=== PATIENT | female | born 1955 | race Caucasian/White ===

== ENCOUNTER 2016-10-06 11:16 | Emergency (ER) | payer MEDICAID ==
[~2016-10-06] VITALS: Ht 160 cm; Wt 65.8 kg
[2016-10-06 11:25] VITALS: BP 168/82; PULSE 75; RESP 16; TEMP 98; O2SAT 99
[2016-10-06] MEDS ORDERED: OXYMETAZOLINE HCL 0.05% NASAL SPRAY NS ONE (13:30)
[2016-10-06] MEDS ORDERED: LORazepam 1 MG TABLET PO ONE (13:45)
[2016-10-06 14:15] LABS: BASOPHILS % (AUTO) 0.3 % (0.0-2.0); EOSINOPHILS # (AUTO) 0.1 K/uL (0.0-0.4); EOSINOPHILS % (AUTO) 0.8 % (0.0-4.0); HEMATOCRIT 40.4 % (36-48); HEMOGLOBIN 13.7 g/dL (12.0-16.0); MEAN CORPUSCULAR HEMOGLOBIN 29 pg (27-31); MEAN CORPUSCULAR HGB CONC 34 % (32-36); MEAN CORPUSCULAR VOLUME 84 fL (79.0-98.0); MONOCYTES # (AUTO) 0.2 K/uL (0.0-1.0); MONOCYTES % (AUTO) 1.8 % (1.7-9.3); NEUTROPHILS # (AUTO) 10.8 K/uL (1.8-7.7); NEUTROPHILS % (AUTO) 89.1 % (40.0-70.0); PLATELET COUNT (AUTO) 230 K/uL (130-430); RED CELL DISTRIBUTION WIDTH 11.9 % (9.0-15.0); WHITE BLOOD COUNT (AUTO) 12.1 K/uL (4.8-10.8)
[2016-10-06] MEDS ORDERED: cloNIDine HCL 0.1 MG TABLET PO ONE (14:15)
[2016-10-06 14:30] LABS: CALCIUM 9.7 mg/dL (8.4-11.0); CREATININE 0.55 mg/dL (0.55-1.30); POTASSIUM 4.1 mmol/L (3.5-5.1)
[2016-10-06 14:31] LABS: INR 0.9 (0.8-1.2); PROTHROMBIN TIME 10.3 SECS (9.5-12.5)
[2016-10-06 16:23] VITALS: BP 156/75; PULSE 85; RESP 16; TEMP 98; O2SAT 99
== END 2016-10-06 16:23 | disposition home or self-care (01) ==
LOC: SED 11:16
DX: R04.0 Epistaxis (principal); I10 Essential (primary) hypertension; R73.9 Hyperglycemia, unspecified
CPT/HCPCS: 36415; 80048; 85025; 85610; 85730; 99284; J7030

== ENCOUNTER 2023-02-04 19:04 | Emergency (ER) | payer MEDICAID, OTHER ==
[~2023-02-04] VITALS: Ht 160 cm; Wt 63.5 kg
[2023-02-04 19:27] VITALS: BP_SYST 198
--- NOTE | 2023-02-04 19:40 | NUR ---
Patient triaged and placed in waiting room. Patient appears in no acute distress at this time. Accompanied by , awaiting available bed, and MD notified of need for MSE. BP OF 198/76, MD made aware. Pt due for nighttime blood pressure medications.
--- NOTE | 2023-02-04 20:00 | NUR ---
Pt to CT via ambulation accompanied by staff and .
--- NOTE | 2023-02-04 20:20 | NUR ---
Pt back from CT via ambulation accompanied by tech and .
[2023-02-04] MEDS ORDERED: TRAM50TA2 PO (20:57)
[2023-02-04] MEDS ORDERED: ONDA-8 TL (20:57)
[2023-02-04] MEDS ORDERED: LIDO1ADH71 TD (20:57)
--- NOTE | 2023-02-04 21:10 | NUR ---
Patient placed in Triage room for MD evaluation.
--- NOTE | 2023-02-04 21:12 | NUR ---
Dr. Sofia in triage room examining the patient.
[2023-02-04 21:14] VITALS: BP_SYST 178
--- NOTE | 2023-02-04 21:16 | NUR ---
Patient given written and verbal discharge instructions and verbalizes understanding. ER DR. RUBIO discussed with patient the results and treatment provided. Patient in stable condition. ID arm band removed. Rx of ZOFRAN, TRAMADOL, AND LIDOCAINE PATCH given. Patient educated on pain management and to follow up with PMD. Pain Scale 0. Opportunity for questions provided and answered. Medication side effect fact sheet provided.
== END 2023-02-04 21:14 | disposition home or self-care (01) ==
LOC: SED 19:04
DX: S40.011A Contusion of right shoulder, initial encounter (principal); S09.90XA Unspecified injury of head, initial encounter; Z79.899 Other long term (current) drug therapy; W20.8XXA Other cause of strike by thrown, projected or falling object, initial encounter; Y93.89 Activity, other specified; Y92.89 Other specified places as the place of occurrence of the external cause; Y99.8 Other external cause status
CPT/HCPCS: 70450-TC; 73030; 76376; 99284